=== PATIENT | female | born 1995 | race Caucasian/White ===

== ENCOUNTER 2018-08-16 21:33 | Observation (INO) | payer BC ==
[2018-08-16 21:44] VITALS: BMI 38.2
--- NOTE | 2018-08-16 22:05 | ED PDOC ---
Arrival/HPI <Joao Diggs - Last Filed: 08/17/18 05:07> - General Historian: Patient, Family - History of Present Illness Narrative History of Present Illness (Text): 08/16/18 22:02 22 y/o female, PMH including PCOS, nkda, c/o coughing and shortness of breath x 1 week. pt. stated that she has been sick with cough and wheezing for 1 week, been having shortness of breath, has albuterol from the urgent care but not helping much, no leg swelling but admits on control medication to regulate her period this year, no night sweat, no change in vision, no other medical or psychological complaints. <Shiva Underwood - Last Filed: 08/17/18 10:34> - General Chief Complaint: Cough, Cold, Congestion Time Seen by Provider: 08/16/18 22:00 Past Medical History - Provider Review Nursing Documentation Reviewed: Yes - Infectious Disease Hx of Infectious Diseases: None - Tetanus Immunization Tetanus Immunization: Unknown - Past Medical History Past Medical History: No Previous - Psychiatric Hx Substance Use: No - Anesthesia Hx Anesthesia: No - Suicidal Assessment Feels Threatened In Home Enviroment: No <Shiva Underwood - Last Filed: 08/17/18 10:34> Family/Social History - Physician Review Nursing Documentation Reviewed: Yes Family/Social History: Unknown Family HX Smoking Status: Current Some Days Smoker Hx Alcohol Use: No Hx Substance Use: No <Shiva Underwood - Last Filed: 08/17/18 10:34> Allergies/Home Meds <Joao Diggs - Last Filed: 08/17/18 05:07> <Shiva Underwood - Last Filed: 08/17/18 10:34> Allergies/Adverse Reactions: Allergies PORK Allergy (Verified 08/16/18 21:45) RASH Home Medications: Home Meds Medication Instructions Recorded Confirmed No Known Home Med 08/16/18 08/16/18 Review of Systems - Review of Systems Constitutional: absent: Fatigue, Fevers Eyes: absent: Vision Changes ENT: absent: Hearing Changes, Sore Throat, Rhinorrhea Respiratory: SOB, Cough, Wheezing. absent: Sputum Cardiovascular: absent: Chest Pain Gastrointestinal: absent: Abdominal Pain, Nausea, Vomiting Musculoskeletal: absent: Arthralgias, Back Pain Skin: absent: Rash, Pruritis Neurological: absent: Headache Psychiatric: absent: Anxiety, Depression, Suicidal Ideation <Shiva Underwood - Last Filed: 08/17/18 10:34> Physical Exam Vital Signs Temp Pulse Resp BP Pulse Ox 08/16/18 22:22 98.2 F 08/16/18 21:53 101 H 16 151/76 H 100 <Joao Diggs - Last Filed: 08/17/18 05:07> Vital Signs Reviewed: Yes Vital Signs Pulse Resp BP Pulse Ox 08/16/18 21:53 101 H 16 151/76 H 100 Blood Pressure: Normal Pulse: Regular Respiratory Rate: Normal Appearance: Positive for: Well-Appearing, Non-Toxic, Comfortable Pain Distress: None Mental Status: Positive for: Alert and Oriented X 3 - Systems Exam Head: Present: Atraumatic, Normocephalic Pupils: Present: PERRL Extroacular Muscles: Present: EOMI Conjunctiva: Present: Normal Mouth: Present: Moist Mucous Membranes Neck: Present: Normal Range of Motion Respiratory/Chest: Present: Wheezes (bilaterally), Decreased Breath Sounds (bilateral), Rales (LLL), Rhonchi. No: Respiratory Distress, Accessory Muscle Use, Retracting, Tachypneic, Tender to Palpation Cardiovascular: Present: Regular Rate and Rhythm, Normal S1, S2. No: Murmurs Abdomen: No: Tenderness, Distention, Peritoneal Signs, Rebound, Guarding Back: Present: Normal Inspection. No: CVA Tenderness Upper Extremity: Present: Normal Inspection. No: Cyanosis, Edema Lower Extremity: Present: Normal Inspection, Other (Negative kathleen and vaughan signs bilaterally). No: Edema Neurological: Present: GCS=15, CN II-XII Intact, Speech Normal, Motor Func Grossly Intact, Gait Normal, Memory Normal Skin: Present: Warm, Dry, Normal Color. No: Rashes Psychiatric: Present: Alert, Oriented x 3, Normal Insight, Normal Concentration <Shiva Underwood - Last Filed: 08/17/18 10:34> Medical Decision Making ED Course and Treatment: 08/17/18 03:[address] Rolon, who is aware and agrees with plan. Accepts pt in to her service. Pt will go to remote telemetry observation for pnuemonia. - Lab Interpretations Lab Results: 08/16/18 22:19 08/16/18 22:19 Lab Results 08/16/18 22:19: Sodium 138, Potassium 4.1, Chloride 101, Carbon Dioxide 27, Anion Gap 13, BUN 12, Creatinine 0.7, Est GFR ( Amer) > 60, Est GFR (Non- Af Amer) > 60, Random Glucose 87, Calcium 9.5, Magnesium 1.8, Total Bilirubin 0.6, AST 29, ALT 37, Alkaline Phosphatase 88, Troponin I < 0.01, Total Protein 9.0 H, Albumin 4.6, Globulin 4.4, Albumin/Globulin Ratio 1.1 08/16/18 22:19: D-Dimer, Quantitative < 200 08/16/18 22:19: WBC 10.0, RBC 5.12, Hgb 14.0, Hct 43.1, MCV 84.2, MCH 27.3, MCHC 32.5, RDW 13.1, Plt Count 329, MPV 9.2, Gran % 60.4, Lymph % (Auto) 33.7, Barrow % (Auto) 4.8, Eos % (Auto) 0.9 L, Baso % (Auto) 0.2, Gran # 6.06, Lymph # (Auto) 3.4, Barrow # (Auto) 0.5, Eos # (Auto) 0.1, Baso # (Auto) 0.02 - RAD Interpretation Radiology Orders: 08/16/18 22:01 CHEST TWO VIEWS (PA/LAT) [RAD] Stat 08/17/18 00:16 ANGIO CHEST PE PROTOCOL [CT] Stat - Medication Orders Current Medication Orders: Discontinued Medications Albuterol/Ipratropium (Duoneb 3 Mg/0.5 Mg (3 Ml) Ud) 3 ml IH Q15M BRODIE Stop: 08/16/18 22:46 Last Admin: 08/16/18 22:20 Dose: 3 ml Methylprednisolone (Solu-Medrol) 125 mg IVP STAT STA Stop: 08/16/18 22:02 Last Admin: 08/16/18 22:20 Dose: 125 mg IVP Administration Document 08/16/18 22:20 IT (Rec: 08/16/18 22:20 IT [id number]) Charges for Administration # of IVP Administrations 1 <Joao Diggs - Last Filed: 08/17/18 05:07> ED Course and Treatment: 08/16/18 22:04 -Labs -ekg -cxr -IV solumedrol/duoneb -observe and reassess 08/17/18 00:16 -Urine hcg is negative -EKG: NSR @ 93 BPM, no ST elevation or depression, no T wave inversion. -CXR ER wet read show no active pulmonary disease disease -Labs show no acute findings -Mg within normal limit -Trop is negative -Dimer is negative. -Pt. feels persistent wheezing and shortness of breath, CTA ordered. 08/17/18 03:25 -[facility] show: No demonstrated pulmonary embolism or arterial dissection. Mild bilateral perihilar and lower lobes ground glass densities of the lungs. Most probably developing infectious/inflammatory pathology like pneumonia. Clinical evaluation is suggested. -IV rocephine and azithromycin ordered, albuterol ordered. -Pt. will need admission as she has persist wheezing. Case endorsed to the Dr. Diggs for admission and hang off. - RAD Interpretation Radiology Orders: 08/16/18 22:01 CHEST TWO VIEWS (PA/LAT) [RAD] Stat Comparison: None. Findings: Frontal and lateral views of the chest were obtained. The mediastinum and cardiac silhouette are within normal limits. The lungs are clear. No pleural effusion or pneumothorax is seen. The osseous structures and soft tissues are unremarkable. Impression: No acute disease. + Electronically signed on Aug 17, 2018 1:08:11 AM EDT by: Ashley Capellan M.D., Certified by RUPERTO, MSK, Neuroradiology CTA Chest: FINDINGS: Mild bilateral perihilar and lower lobes ground glass densities of the lungs. Normal enhancement of the main pulmonary artery and right and left pulmonary arteries. Normal enhancement of the bilateral peripheral pulmonary arteries. There is no demonstrated pulmonary embolism. Normal thoracic aorta and visualized great vessels. There is no demonstrated aortic dissection. Normal heart and pericardium. Normal mediastinum. Normal hilar regions. Normal visualized trachea and bronchi. The lungs are well expanded. Normal pulmonary parenchyma. Normal pleura. Normal chest wall structures. Normal osseous structures. Normal visualized upper abdomen. IMPRESSION: No demonstrated pulmonary embolism or arterial dissection. Mild bilateral perihilar and lower lobes ground glass densities of the lungs. Most probably developing infectious/inflammatory pathology like pneumonia. Clinical evaluation is suggested. Electronically signed on Aug 17, 2018 3:22:16 AM EDT by: Ashley Capellan M.D., Certified by RUPERTO, MSK, Neuroradiology Histological Illustrator: Radiologist - EKG Interpretation EKG Interpretation (Text): 08/16/18 22:05 NSR @ 93 BPM, no ST elevation or depression, no T wave inversion. Interpreted by ED Physician: Yes Type: 12 lead EKG - Medication Orders Current Medication Orders: Albuterol/Ipratropium (Duoneb 3 Mg/0.5 Mg (3 Ml) Ud) 3 ml IH Q15M BRODIE Stop: 08/16/18 22:46 <Shiva Underwood - Last Filed: 08/17/18 10:34> - PA / ACUPUNCTURIST / Resident Statement CANDIDA has reviewed & agrees with the documentation as recorded. CANDIDA has examined the patient and agrees with the treatment plan. <Joao Diggs - Last Filed: 08/17/18 05:07> - PA / ACUPUNCTURIST / Resident Statement CANDIDA has reviewed & agrees with the documentation as recorded. CANDIDA has examined the patient and agrees with the treatment plan. <Shiva Underwood - Last Filed: 08/17/18 10:34> Disposition/Present on Arrival <Joao Diggs - Last Filed: 08/17/18 05:07> - Present on Arrival Any Indicators Present on Arrival: No History of DVT/PE: No History of Uncontrolled Diabetes: No Urinary Catheter: No History of Decub. Ulcer: No History Surgical Site Infection Following: None - Disposition Have Diagnosis and Disposition been Completed?: Yes Disposition Time: 03:26 Patient Plan: Admission, Observation, Telemetry <Shiva Underwood Q - Last Filed: 08/17/18 10:34> - Disposition Diagnosis: Shortness of breath, Pneumonia Disposition: HOSPITALIZED Patient Problems: Current Active Problems Problem Status Onset Shortness of breath Acute Pneumonia Acute Condition: STABLE
[2018-08-16] MEDS ORDERED: Albuterol-Ipratrop 3 mg / 0.5 (3 ml) UD IH SCH (22:15)
[2018-08-16 22:22] LABS: BASO # 0.02 K/mm3 (0.0-2.0); BASO % 0.2 % (0.0-3.0); EOS # 0.1 (0.0-0.7); EOS % 0.9 % (1.5-5.0); GRAN # 6.06 (1.4-6.5); GRAN % 60.4 % (50.0-68.0); LYMPH # 3.4 (1.2-3.4); LYMPH % 33.7 % (22.0-35.0); MEAN CELL VOLUME 84.2 fl (80.0-105.0); MEAN CORPUSCULAR HEMOGLOBIN 27.3 pg (25.0-35.0); MEAN CORPUSCULAR HGB CONC 32.5 g/dl (31.0-37.0); MEAN PLATELET VOLUME 9.2 fl (7.0-11.0); MONO # 0.5 (0.1-0.6); MONO % 4.8 % (1.0-6.0); RBC 5.12 10^6/uL (3.5-6.1); RED CELL DISTRIBUTION WIDTH 13.1 % (11.5-14.5)
[2018-08-16 22:34] LABS: ALB/GLOB RATIO 1.1 (1.1-1.8); ALBUMIN 4.6 g/dL (3.0-4.8); ALT/SGPT 37 U/L (7-56); AST/SGOT 29 U/L (14-36); BLOOD UREA NITROGEN 12 mg/dL (7-21); CALCIUM 9.5 mg/dL (8.4-10.5); GFR NON-AFRICAN AMERICAN > 60
[2018-08-16 22:45] LABS: TROPONIN I < 0.01 ng/mL
[2018-08-17] MEDS ORDERED: Azithromycin 500MG/NS 250ml 500 MG/250 ML BAG IVPB STA (03:22)
[2018-08-17] MEDS ORDERED: cefTRIAXone 1 gm 1 GM/100 ML BAG IVPB STA (03:22)
[2018-08-17] MEDS ORDERED: Albuterol 0.083% Inhal Sol (2.5 mg/3 mL) UD INH STA (03:22)
--- NOTE | 2018-08-17 06:02 | RAD ---
HISTORY: Shortness of breath COMPARISON: No prior. TECHNIQUE: Chest PA and lateral FINDINGS: LINES AND TUBES: None. LUNG AND PLEURA: The lungs are well inflated and clear. No pleural effusion or pneumothorax. HEART AND MEDIASTINUM: The heart is not enlarged. No aortic atherosclerotic calcification present. The hilar and mediastinal contours are within normal limits. SKELETAL STRUCTURES: The bony structures are within normal limits for the patient's age. VISUALIZED UPPER ABDOMEN: Normal. OTHER FINDINGS: None. IMPRESSION: No active pulmonary disease.
--- NOTE | 2018-08-17 09:13 | CT ---
Date of service: 08/17/2018 PROCEDURE: CT Chest with contrast (Pulmonary Angiogram) HISTORY: persistent wheezing/sob COMPARISON: Plain radiographs performed earlier the same day. TECHNIQUE: Axial computed tomography images were obtained of the chest in the pulmonary arterial phase of enhancement. Coronal and sagittal reformatted images were created and reviewed. Intravenous contrast dose: 95 cc Omnipaque 350 Radiation dose: Total exam DLP = 464.19 mGy-cm. This CT exam was performed using one or more of the following dose reduction techniques: Automated exposure control, adjustment of the mA and/or kV according to patient size, and/or use of iterative reconstruction technique. FINDINGS: PULMONARY ARTERIES: There are no filling defects in the pulmonary arteries to suggest acute pulmonary embolism. AORTA: No acute findings. No thoracic aortic aneurysm. LUNGS: The lungs are clear. No nodule, mass or pulmonary consolidation. PLEURAL SPACES: No effusion or pneumothorax. HEART: No atherosclerotic aortic calcifications or mural plaques present. No cardiomegaly. No significant pericardial effusion. LYMPH NODES: No lymphadenopathy. BONES, CHEST WALL: Within normal limits for the patient's age. No fracture or destructive lesion OTHER FINDINGS: Unremarkable. IMPRESSION: No CT evidence for acute pulmonary embolism. Clear lungs.
[2018-08-17] MEDS ORDERED: Azithromycin 500 MG in Sodium Chloride 0.9% 250 ML IVPB SCH (10:15)
[2018-08-17] MEDS ORDERED: Azithromycin 500MG/NS 250ml 500 MG/250 ML BAG IVPB ONE (10:30)
--- NOTE | 2018-08-17 10:35 | CARD ---
APPROVED REPORT Date of service: 08/16/2018 EKG Measurement Heart [id number] CT [id number] <Conclusion> Normal sinus rhythm QS in V1. Suggest clinical correlation.
[2018-08-17] MEDS: cefTRIAXone 1 gm 1 GM/100 ML BAG IVPB SCH (10:38)
[2018-08-17] MEDS: MethylPREDNISolone 40 mg Vial IVP SCH ×2 (10:38→21:41)
[2018-08-17] MEDS: Albuterol-Ipratrop 3 mg / 0.5 (3 ml) UD IH SCH (13:08)
--- NOTE | 2018-08-18 03:19 | CON ---
DATE: 08/17/2018 REFERRING PHYSICIAN: Jael Rolon MD REASON FOR CONSULT: Probably new onset of chronic obstructive lung disease, rule out pneumonia. HISTORY OF PRESENT ILLNESS: This is a 22 years old female without any significant past medical history other than overweight, been having recurrent cough, shortness of breath, latest one about a week ago, cough, shortness of breath, wheezing, seen PMD. She was given antibiotics without much relief. Comes into ER with persistent cough, shortness of breath, wheezing, admitted to have a loud snoring. History of GERD. No nausea, no dysuria, no leg pain, no leg swelling. PAST MEDICAL HISTORY: No significant cardiac disease. Has a history of recurrent bronchitis. FAMILY HISTORY: No significant cardiopulmonary disease reported. SOCIAL HISTORY: She works as a checker cashier. Nondrinker. She is a smoker. ALLERGIES: ALLERGIC TO PORK, DEVELOPED RASH. MEDICATIONS: She is on DuoNeb every 6 hours, Pepcid 40 mg h.s., Rocephin 1 g daily, Solu-Medrol 40 mg every 12 hours, Tylenol p.r.n., Zithromax 500 mg daily, Zofran p.r.n. basis. REVIEW OF SYSTEMS: No headache, no rhinitis. Has cough, shortness of breath, wheezing. Admitted to have nocturnal snoring, daytime sleepy and tired. Also history of GERD. No abdominal pain or dysuria, leg pain or leg swelling. PHYSICAL EXAMINATION: GENERAL: Lying in the bed, in no acute distress. VITAL SIGNS: Temperature 98, heart rate is 130, respiratory rate is 20, blood pressure 131/70, pulse ox 97% on room air. HEENT: Moist mucous membrane. Crowded airway. Mallampati score is 4. Maxillary sinus, ethmoid sinus, frontal sinus, there is no tenderness. Has a submandibular area with some tenderness. LUNGS: Expiratory wheezing with prolonged phase. HEART: S1 and S2. ABDOMEN: Soft, nontender. No organomegaly. EXTREMITIES: There is no edema. NEUROLOGIC: Awake, alert, follows simple commands. LABORATORY DATA: Shows hemoglobin 14, hematocrit 43.1, WBC 10, platelet is 329. D-dimer less than 200. Sodium 138, potassium 4.1, chloride 101, bicarbonate 27, BUN 12, creatinine 0.7, calcium 9.5, magnesium 1.8, total bili 0.6, AST 29, ALT 37, alk phos is 88. Troponin less than 0.01. Albumin is 4.6. CAT scan of the chest done which is negative for PE, otherwise unremarkable. IMPRESSION AND PLAN: Probably exacerbation of chronic obstructive lung disease, could be new onset of asthma, history of bronchitis for months, may have a gastroesophageal reflux disease, component of sleep apnea is there. I agree with Dr. Rolon with the present management. Continue antibiotics. Continue steroids, inhaled bronchodilator, gastric prophylaxis. We will also add chemical DVT prophylaxis. Will need upon discharge outpatient full PFT and attended sleep study. Thank you, and we will follow with you. Radha Loo MD
[2018-08-18 06:46] LABS: HEMOGLOBIN 12.9 g/dL (12.0-16.0); MEAN CELL VOLUME 83.5 fl (80.0-105.0); MEAN CORPUSCULAR HEMOGLOBIN 26.9 pg (25.0-35.0); MEAN CORPUSCULAR HGB CONC 32.3 g/dl (31.0-37.0); MEAN PLATELET VOLUME 9.3 fl (7.0-11.0); RBC 4.79 10^6/uL (3.5-6.1); RED CELL DISTRIBUTION WIDTH 13.5 % (11.5-14.5)
[2018-08-18 07:10] LABS: IRON 114 ug/dL (45-180)
[2018-08-18 07:11] LABS: LDL CHOLESTEROL 129 mg/dL (0-129)
[2018-08-18 07:15] LABS: BLOOD UREA NITROGEN 15 mg/dL (7-21); CALCIUM 9.3 mg/dL (8.4-10.5); GFR NON-AFRICAN AMERICAN > 60; HDL CHOLESTEROL 34 mg/dL (29-60)
[2018-08-18 07:19] LABS: % IRON SATURATION 30 % (20-55); TOTAL IRON BINDING CAPACITY 376 ug/dL (265-497)
[2018-08-18] MEDS: Albuterol-Ipratrop 3 mg / 0.5 (3 ml) UD IH SCH ×2 (08:26→13:16)
[2018-08-18] MEDS: Enoxaparin 40 mg Syringe SC SCH (09:42)
[2018-08-18] MEDS: cefTRIAXone 1 gm 1 GM/100 ML BAG IVPB SCH (09:43)
[2018-08-18] MEDS: Azithromycin 500MG/NS 250ml 500 MG/250 ML BAG IVPB SCH (09:43)
[2018-08-18] MEDS: MethylPREDNISolone 40 mg Vial IVP SCH ×2 (09:43→21:24)
--- NOTE | 2018-08-18 16:25 | PN ---
DATE: 08/18/2018 PULMONARY PROGRESS NOTE REFERRING PHYSICIAN: Jael Rolon MD SUBJECTIVE: She is sitting side of the bed, feels better, still have a cough, wheezing is better. No nausea, vomiting, or diarrhea. No leg pain or leg swelling. OBJECTIVE: GENERAL: In no acute distress. VITAL SIGNS: Temperature is 98, heart rate 70, respiratory rate 20, blood pressure 121/73. HEENT: Moist mucous membrane. Crowded airway. Mallampati score is 4. NECK: Supple. No JVD. LUNGS: Have a prolonged expiratory phase. No wheezing. HEART: S1 and S2. ABDOMEN: Soft, nontender. No organomegaly. EXTREMITIES: No edema. NEUROLOGICAL: Awake and alert. Follows simple command. MEDICATIONS: She is on DuoNeb every 6 hours, Lovenox 40 mg subcu daily, Pepcid 40 mg at bedtime, Rocephin 1 g IV daily, Solu-Medrol 40 mg every 12 hours, Tylenol p.r.n., Zithromax 5 mg daily, Zofran p.r.n. basis. LABORATORY DATA: Shows hemoglobin 12.9, hematocrit 40, WBC 12,000, platelet is 374. Sodium 138, potassium 4.6, chloride 104, bicarbonate 23, BUN 15, creatinine 0.6, glucose 165, hemoglobin A1c 6.4. Iron is 114. Cholesterol is 161. TSH 0.52. IMPRESSION AND PLAN: New onset of probably chronic obstructive lung disease, may have a sleep apnea syndrome and acid reflux. Pulmonary point of view, much improved. Continue steroids, inhaled bronchodilator, antibiotics, gastric prophylaxis, deep vein thrombosis prophylaxis. Once improved discharged, outpatient sleep study and pulmonary function test. Thank you and we will follow with you. Radha Loo MD
--- NOTE | 2018-08-18 22:02 | PN ---
DATE: 08/18/2018 SUBJECTIVE: The patient is a 22-year-old female. The patient was seen and examined in the bedside on 08/18/2018, looking comfortable. No nausea or vomiting. No hematuria. No hematochezia. No swelling of the legs, but having chest pain with coughing, still having little bit of wheezing and coughing. No fever. No chills. PHYSICAL EXAMINATION: VITAL SIGNS: Temperature 98.0, heart rate 70, respiratory rate 20, blood pressure 120/73. HEENT: Head normocephalic and atraumatic. Eyes, PERRLA. Extraocular movements intact. Conjunctivae clear. Nose patent. Mucous membranes moist. NECK: Supple. No carotid bruit. No JVD or thyromegaly. CHEST: Bilaterally symmetrical. HEART: S1, S2 positive. LUNGS: Has prolonged expiratory phase. ABDOMEN: Soft. Nontender. No organomegaly. EXTREMITIES: No edema. No cyanosis. NEUROLOGIC: The patient is awake and alert. Follow simple commands. MEDICATIONS: DuoNeb, Lovenox, Pepcid, Rocephin, Solu-Medrol, Tylenol, Zithromax, and Zofran. LABORATORY DATA: Hemoglobin 12.9, hematocrit 40, white blood cells 12,000, and platelets 374. Sodium 138, potassium 4.6, BUN 15, creatinine 0.6. Hemoglobin A1c 6.4. Blood sugar 151. ASSESSMENT AND PLAN: Ms. Anne-Marie Cartwright is a 22-year-old female who has new onset probably chronic obstructive lung disease, sleep apnea syndrome, has pneumonia. Continue steroids and inhaled bronchodilators. Gastric and deep venous thrombosis prophylaxis. Length of time discussion done with the patient's sitting on the beside. CAT scan of the chest is reviewed by me. CAT scan shows no CT evidence for acute pulmonary embolism, clear lungs, bronchitis. Gastrointestinal and deep venous thrombosis prophylaxis. Repeat labs. We will follow up. Jael Rolon MD [facility]
[2018-08-19 01:22] VITALS: RESP 20
[2018-08-19] MEDS: Albuterol-Ipratrop 3 mg / 0.5 (3 ml) UD IH SCH ×3 (03:14→13:04)
--- NOTE | 2018-08-19 08:59 | HP ---
DATE OF EXAM: 08/17/2018 The patient was seen and examined on the bedside on 08/17/2018. CHIEF COMPLAINT: Chest pain, shortness of breath, and coughing. HISTORY OF PRESENT ILLNESS: Ms. Anne-Marie Cartwright is a 22-year-old female with past medical history of PCO, came with coughing and shortness of breath for one week. The patient stated that she has been sick with cough and wheezing for one week been having shortness of breath, has albuterol from the urgent care center for helping cough , No leg swelling, no fever, no chills. The patient is on control pills to regulate her periods. No night sweats, no fever, no chills. No change of vision. No hematuria, no hematochezia. PAST MEDICAL HISTORY: Not significant. FAMILY HISTORY: Father and mother, noncontributory. HABITS: No smoking. No drugs. No ethanol. ALLERGIES: THE PATIENT IS ALLERGIC TO PORK. HOME MEDICATIONS: control pills to control to menstruation. REVIEW OF SYSTEMS: The patient was seen and examined at the bedside. Looking comfortable. Still coughing, shortness of breath, wheezing. No sputum production. No abdominal pain. No arthralgia. No headache. No dizziness. No pruritus. No anxiety or depression. No suicidal or homicidal ideation. No fatigue or feverish. No vision changes. No hearing changes. PHYSICAL EXAMINATION VITAL SIGNS: Temperature 98.2, pulse 101, respiratory rate 16, blood pressure 150/76, pulse oximetry 100. HEENT: Head normocephalic and atraumatic. Eyes: PERRLA. Extraocular muscles intact. Conjunctivae clear. Nose patent. Mucous membrane moist. NECK: Supple. No carotid bruit. No JVD or thyromegaly. CHEST: Bilaterally symmetrical. HEART: S1 and S2 positive. LUNGS: Wheezing bilaterally. Decreased breath sounds. Rales in the left lower lobe. ABDOMEN: Soft. Bowel sounds present. No organomegaly. EXTREMITIES: No edema. No cyanosis. NEUROLOGIC: Patient is awake, alert, moving all four extremities. No focal deficit. LABORATORY DATA: White blood cell 10.0, hemoglobin 14.0, hematocrit 43.1, platelets 329. Sodium 139, potassium 4.1, BUN 12, creatinine 0.7, glucose 87. ASSESSMENT AND PLAN: Ms. Anne-Marie Cartwright is a 22-year-old female with history of polycystic ovary disease, getting control to regulate the menstruation, came with coughing and shortness of breath from one week, went to urgent care center, they gave albuterol that helped her but not much. Did CAT scan, no demonstration of pulmonary emboli or arterial dissection, mild bilateral perihilar and lower lobe ground glass opacities of the lungs most probably developing infectious/inflammatory pathology like pneumonia. We admitted the patient and started on IV antibiotics. CAT scan of the chest reviewed by me. Started the patient on albuterol, Pepcid for gastrointestinal prophylaxis, ceftriaxone and Zithromax IV antibiotics, started on Solu-Medrol, repeat the labs, GI prophylaxis Jael Rolon MD [facility]
[2018-08-19] MEDS: MethylPREDNISolone 40 mg Vial IVP SCH (09:32)
[2018-08-19] MEDS: cefTRIAXone 1 gm 1 GM/100 ML BAG IVPB SCH (09:32)
[2018-08-19] MEDS: Azithromycin 500MG/NS 250ml 500 MG/250 ML BAG IVPB SCH (09:32)
[2018-08-19] MEDS: Enoxaparin 40 mg Syringe SC SCH (09:32)
[2018-08-19 14:17] VITALS: BP 142/76; PULSE 84; TEMP 98.3; O2SAT 94
== END 2018-08-19 17:43 | disposition home or self-care (01) ==
LOC: ED 21:33 → ERH 08-17 03:41 → 2RNO 08-17 05:00 → INTOOBSV 08-17 17:53 → OBSVTOIN 08-17 17:53 → 5RNO 08-18 18:47
PROVIDERS: ADMIT Internal Medicine; ATTEND Internal Medicine
DX: J18.9 Pneumonia, unspecified organism (principal); E28.2 Polycystic ovarian syndrome; K21.9 Gastro-esophageal reflux disease without esophagitis; F17.200 Nicotine dependence, unspecified, uncomplicated; G47.30 Sleep apnea, unspecified
CPT/HCPCS: 36415; 71046; 71275; 80048; 80053; 80061; 82607; 82746; 83036; 83540; 83550; 83735; 84443; 84484; 85025; 85027; 85378; 93005; 94640; 94760; 96365; 96372; 96374; 96375; 96376; 99285; G0378; J0456; J0696; J1650; J2920; J2930

== ENCOUNTER 2018-09-15 00:52 | Emergency (ER) | payer BC ==
[2018-09-15 00:53] VITALS: BMI 38.2
[2018-09-15] MEDS ORDERED: Albuterol-Ipratrop 3 mg / 0.5 (3 ml) UD ONE (01:18)
--- NOTE | 2018-09-15 01:47 | ED PDOC ---
Arrival/HPI - General Chief Complaint: Respiratory Distress Historian: Patient - History of Present Illness Narrative History of Present Illness (Text): 09/15/18 01:46 Luis F Cartwright is a 22 year old female who presents to the Emergency department complaining of shortness of breath. Patient also report dry cough, and sharp right sided chest pain only with coughing. Patient denies any medical history, states she is scheduled to see a sight effects specialist for a sleep study and was given Albuterol for "bronchitis" in the past. Patient denies any fever, chills, nausea, vomiting, headache, dizziness, or any other complaints. Symptom Onset: Gradual Symptom Course: Unchanged Activities at Onset: Light Context: Home Past Medical History - Provider Review Nursing Documentation Reviewed: Yes - Infectious Disease Hx of Infectious Diseases: None - Tetanus Immunization Tetanus Immunization: Unknown - Past Medical History Past Medical History: No Previous - Cardiac Hx Cardiac Disorders: No Hx Angina: No - Pulmonary Hx Respiratory Disorders: No Hx Sleep Apnea: No - Endocrine/Metabolic Hx Endocrine Disorders: Yes (PCOS) - Musculoskeletal/Rheumatological Hx Falls: No - Psychiatric Hx Substance Use: No - Anesthesia Hx Anesthesia: No - Suicidal Assessment Feels Threatened In Home Enviroment: No Family/Social History - Physician Review Nursing Documentation Reviewed: Yes Family/Social History: Unknown Family HX Smoking Status: Current Some Days Smoker Hx Alcohol Use: No Hx Substance Use: No Allergies/Home Meds Allergies/Adverse Reactions: Allergies PORK Allergy (Verified 09/15/18 01:23) RASH Review of Systems - Physician Review All systems were reviewed & negative as marked: Yes - Review of Systems Constitutional: Normal. absent: Fevers Eyes: Normal ENT: Normal Respiratory: SOB, Cough, Wheezing Cardiovascular: Chest Pain Musculoskeletal: Normal, Back Pain Skin: Normal. absent: Rash Neurological: Normal. absent: Headache, Dizziness Endocrine: Normal Hemo/Lymphatic: Normal Psychiatric: Normal Physical Exam Vital Signs Reviewed: Yes Vital Signs Temp Pulse Resp BP Pulse Ox 09/15/18 01:32 98.9 F 112 H 20 134/90 95 09/15/18 01:24 20 95 Temperature: Afebrile Blood Pressure: Normal Pulse: Tachycardic Respiratory Rate: Normal Appearance: Positive for: Well-Appearing, Non-Toxic, Comfortable Pain Distress: None Mental Status: Positive for: Alert and Oriented X 3 - Systems Exam Head: Present: Atraumatic, Normocephalic Pupils: Present: PERRL Extroacular Muscles: Present: EOMI Conjunctiva: Present: Normal Mouth: Present: Moist Mucous Membranes Neck: Present: Normal Range of Motion Respiratory/Chest: Present: Wheezes (Expiratory wheezing throughout lungs). No: Respiratory Distress, Accessory Muscle Use Cardiovascular: Present: Regular Rate and Rhythm, Normal S1, S2. No: Murmurs Abdomen: No: Tenderness, Distention, Peritoneal Signs Back: Present: Normal Inspection Upper Extremity: Present: Normal Inspection. No: Cyanosis, Edema Lower Extremity: Present: Normal Inspection. No: Edema Neurological: Present: GCS=15, CN II-XII Intact, Speech Normal Skin: Present: Warm, Dry, Normal Color. No: Rashes Psychiatric: Present: Alert, Oriented x 3, Normal Insight, Normal Concentration Medical Decision Making ED Course and Treatment: 09/15/18 01:46 Impression: 22 year old female complaining of shortness of breath, dry cough, and sharp right-sided chest pain only with coughing. Plan: -- EKG -- Chest X-ray -- Labs, cardiac enzymes -- Rapid influenza -- Duoneb -- Solu-medrol -- Magnesium sulfate -- Reassess and disposition Progress Notes: Reviewed EKG, sinus tachycardia at [address]-segment elevations or depressions, no T-wave inversions, normal intervals. 09/15/18 03:15 Chest X-ray reviewed, shows no acute processes. 09/15/18 03:48 On reassessment, patient's wheezing has resolved and reports she is feeling better. Pt will follow-up with her PMD and sight effects specialist in a couple of days. Pt stable for discharge. - Lab Interpretations I have reviewed the lab results: Yes - RAD Interpretation Grinder Operator: ED Physician - EKG Interpretation Interpreted by ED Physician: Yes Type: 12 lead EKG - Scribe Statement The provider has reviewed the documentation as recorded by the Vera Aden Provider Scribe Attestation: All medical record entries made by the Scribe were at my direction and personally dictated by me. I have reviewed the chart and agree that the record a ccurately reflects my personal performance of the history, physical exam, medical decision making, and the department course for this patient. I have also personally directed, reviewed, and agree with the discharge instructions and disposition. Disposition/Present on Arrival - Present on Arrival Any Indicators Present on Arrival: No History of DVT/PE: No History of Uncontrolled Diabetes: No Urinary Catheter: No History of Decub. Ulcer: No History Surgical Site Infection Following: None - Disposition Have Diagnosis and Disposition been Completed?: Yes Diagnosis: Reactive airway disease with wheezing Disposition: HOME/ ROUTINE Disposition Time: 03:30 Condition: IMPROVED Discharge Instructions (ExitCare): How to Use Your Metered Dose Inhaler (Adults) Additional Instructions: LUIS F CARTWRIGHT, thank you for letting us take care of you today. The emergency medical care you received today was directed at your acute symptoms. If you were prescribed any medication, please fill it and take as directed. It may take several days for your symptoms to resolve. Return to the Emergency Department if your symptoms worsen, do not improve, or if you have any other problems. Please contact your doctor or call one of the physicians/clinics you have been referred to that are listed on the Patient Visit Information form that is included in your discharge packet. Bring any paperwork you were given at discharge with you along with any medications you are taking to your follow up visit. Our treatment cannot replace ongoing medical care by a primary care provider outside of the emergency department. Thank you for allowing the [facility] team to be part of your care today. Follow up with your primary care doctor and pulmonary doctor in 2-3 days for re- evaluation and further management. Prescriptions: Fluticasone Propionate [Flovent Hfa] 2 puff IH BID #1 aer.w.adap predniSONE [Prednisone] 40 mg PO DAILY #10 tab [facility] - Follow up with primary Forms: [employer] ([place])
[2018-09-15] MEDS ORDERED: Albuterol-Ipratrop 3 mg / 0.5 (3 ml) UD IH STA (01:48)
[2018-09-15] MEDS ORDERED: Magnesium Sulfate 2 gm/50 ml 2 GM/50 ML BAG IV ONE (02:00)
[2018-09-15] MEDS: Albuterol-Ipratrop 3 mg / 0.5 (3 ml) UD IH SCH ×2 (02:05→02:20)
[2018-09-15 02:18] LABS: BASO # 0.03 K/mm3 (0.0-2.0); BASO % 0.3 % (0.0-3.0); EOS # 0.3 (0.0-0.7); EOS % 2.7 % (1.5-5.0); GRAN # 6.74 (1.4-6.5); GRAN % 68.1 % (50.0-68.0); HEMOGLOBIN 13.8 g/dL (12.0-16.0); LYMPH # 2.3 (1.2-3.4); LYMPH % 23.5 % (22.0-35.0); MEAN CORPUSCULAR HEMOGLOBIN 27.2 pg (25.0-35.0); MEAN CORPUSCULAR HGB CONC 32.8 g/dl (31.0-37.0); MEAN PLATELET VOLUME 9.6 fl (7.0-11.0); MONO # 0.5 (0.1-0.6); MONO % 5.4 % (1.0-6.0); RBC 5.07 10^6/uL (3.5-6.1); RED CELL DISTRIBUTION WIDTH 13.3 % (11.5-14.5); WHITE BLOOD COUNT 9.9 10^3/uL (4.5-11.0)
[2018-09-15 02:24] LABS: ALB/GLOB RATIO 1.1 (1.1-1.8); ALBUMIN 4.2 g/dL (3.0-4.8); ALT/SGPT 42 U/L (7-56); AST/SGOT 30 U/L (14-36); BLOOD UREA NITROGEN 15 mg/dL (7-21); CALCIUM 9.4 mg/dL (8.4-10.5); GFR NON-AFRICAN AMERICAN > 60
[2018-09-15 02:35] LABS: TROPONIN I < 0.01 ng/mL
[2018-09-15 03:06] VITALS: RESP 18
[2018-09-15 04:06] VITALS: BP 132/88; PULSE 101; TEMP 98.2; O2SAT 96
--- NOTE | 2018-09-15 09:43 | RAD ---
HISTORY: cough COMPARISON: Chest x-ray performed 08/16/18 TECHNIQUE: Chest, one view. FINDINGS: Examination limited by habitus and hypoinflation. LUNGS: No focal consolidation. Please note that chest x-ray has limited sensitivity for the detection of pulmonary masses. PLEURA: No significant pleural effusion identified. No definite pneumothorax . CARDIOVASCULAR: Heart size appears within normal limits. No significant atherosclerotic calcification present. OSSEOUS STRUCTURES: No acute osseous abnormality identified. VISUALIZED UPPER ABDOMEN: Unremarkable. OTHER FINDINGS: None. IMPRESSION: No focal consolidation identified.
--- NOTE | 2018-09-16 07:45 | CARD ---
APPROVED REPORT Date of service: 09/15/2018 EKG Measurement Heart [id number] <Conclusion> Sinus tachycardia QS in V1 NSSTW changes, new
== END 2018-09-15 04:06 | disposition home or self-care (01) ==
LOC: ED 00:52
DX: J45.909 Unspecified asthma, uncomplicated (principal); F17.210 Nicotine dependence, cigarettes, uncomplicated
CPT/HCPCS: 71045; 80053; 82550; 83615; 83735; 84484; 85025; 87804; 93005; 96374; 99284; J2930